=== PATIENT | male | born 1995 | race Caucasian/White ===

== ENCOUNTER 2016-05-26 11:12 | Emergency (ER) | payer SELFPAY ==
--- NOTE | ~2016-05-26 | ER ---
PATIENT'S NAME: JEAN [facility]UL [facility] AGE: 20 Y [address] ROOM: [place] [id number] LOCATION: ED ADMIT DATE: 05/26/2016 ER/Outpatient Report DISCHARGE DATE: 05/26/2016 FAMILY PHYSICIAN: Physician, Unknown ATTENDING PHYSICIAN: Fabiano Keita CHIEF COMPLAINT: Alcohol intoxication. HPI: The patient brought in by ambulance and police for being belligerent. The patient has a history of alcohol abuse requiring treatment. He states that he has been using moonshine and mouthwash as well recently. His significant other did not want to help participate in his care today. He was supposedly unresponsive in public; difficult to arouse, which improved; but he became belligerent and at that time police felt he should be evaluated and asked for an ambulance to bring him in. No other known issues at that time. PAST MEDICAL HISTORY: Obtained as best we could find. SOCIAL HISTORY: Obtained as best we could find. MEDICATIONS: Obtained as best we could find. ALLERGIES: OBTAINED BEST WE COULD FIND. REVIEW OF SYSTEMS: Such as it is was completed and documented on the record and negative except as noted in the HPI. PHYSICAL EXAMINATION: VITAL SIGNS: Blood pressure 157/110, pulse 113, respiratory rate is 18, temperature is 97.2, SpO2 is 98% on room air. GENERAL: Age-appropriate male, agitated, speaking in an abrasive language and being verbally aggressive. No physical aggression. He is intermittently agitated and he is not easily redirectable. He at one point did actually pull out his IV. He did have an IV running and was getting normal saline for hydration. His mental status did appear to improve somewhat during his time in the emergency department. HEENT: Grossly normocephalic. No obvious trauma. The eyes are without nystagmus, but the patient is clearly intoxicated. The speech is slightly PATIENT'S NAME: JEAN PAUL [facility] AGE: 20 Y [address] ROOM: [place] [address] LOCATION: [facility] ADMIT DATE: 05/26/2016 ER/Outpatient Report DISCHARGE DATE: 05/26/2016 FAMILY PHYSICIAN: Physician, Unknown ATTENDING PHYSICIAN: Fabiano Keita slurred. Inspection of the body does not reveal any other abnormalities. The patient would not allow me to examine him any further, but I do not appreciate any obvious trauma. No difficulty with breathing. No obvious pain in his extremities based on his current gait. LABORATORY DATA: The patient did allow labs. Sodium was 147, potassium 3.9, chloride is 110, CO2 is 25, BUN is 10, creatinine 0.9. GFR is greater than 60. LFTs are completely within normal limits. Blood alcohol level is 0.430. Salicylates are below threshold. Tylenol is below threshold. Free T4 is 1.3. TSH is 0.575. Lactate is 3.0. WBC is 5.1, hemoglobin is 16.8, platelets of 302. UDS is notable for cannabinoids being positive. INR is 1.0. IMPRESSION: Alcohol intoxication. EMERGENCY DEPARTMENT COURSE: The patient was evaluated as above. He became extremely adamant to leave. I was able to confirm that he did not have any obvious life-threatening presentations and saw no exact neural deficits. Presentation fits alcohol intoxication. No evidence of elevated anion gap and there is no salicylates or Tylenol in the system. At this time, I believe he is medically stable for discharge. The patient was ultimately discharged. This was a suboptimal encounter as the patient would not acquiesce to a physical exam. My overall suspicion is low; however, I could not complete my evaluation. He was ultimately discharged under his own power. MD ARUN CAMACHO/aashish /[id number] d: 05/27/16 0857 t: 05/29/16 181, OUTPATIENT REPORT
[2016-05-26 12:01] LABS: BASOPHIL # 0.1 K/uL (0.0-0.2); BASOPHIL % 1.4 %; EOSINOPHIL % 0.4 %; HEMATOCRIT 48.6 % (37.0-53.0); HEMOGLOBIN 16.8 g/dL (12.0-17.0); LYMPHOCYTE # 1.8 K/uL (0.8-4.0); LYMPHOCYTE % 34.9 %; MCH 31.6 pg (27.0-34.0); MCHC 34.6 gm/dL (32.0-36.5); MCV 91.4 fl (83.0-98.0); MONOCYTE # 0.3 K/uL (0.0-1.0); MONOCYTE % 5.3 %; MPV 9.2 fl (9.4-12.4); NEUTROPHIL # (ANC) 2.9 K/uL (1.4-9.0); NRBC % 0 /100WBC (0-0.00); PLATELET COUNT 302 K/uL (150-450); RBC 5.32 M/uL (4.00-6.00); RDW-CV 12.4 % (11.9-14.6); WBC 5.1 K/uL (4.0-11.0)
[2016-05-26 12:02] LABS: BARBITURATE NEGATIVE (NEGATIVE); COCAINE NEGATIVE (NEGATIVE); OPIATES NEGATIVE (NEGATIVE)
[2016-05-26 12:05] LABS: AMPHETAMINE NEGATIVE (NEGATIVE)
[2016-05-26 12:09] LABS: PROTIME 10.6 SECONDS (9.6-11.1); PTT 25 SECONDS (25-32)
[2016-05-26 12:28] LABS: ALBUMIN 4.5 gm/dL (3.5-5.0); ALK PHOS 94 IU/L (33-138); ALT 41 IU/L (12-78); AST 36 IU/L (10-40); BLOOD UREA NITROGEN 10 mg/dL (6-24); CALCIUM 8.3 mg/dL (8.5-10.5); CHLORIDE 110 mMol/L (96-110); CO2 25 mMol/L (22-32); CREATININE 0.9 mg/dL (0.6-1.3); ESTIMATED GFR (MDRD EQUATION) > 60; POTASSIUM 3.9 mMol/L (3.7-5.1); TOTAL BILIRUBIN 0.5 mg/dL (0.0-1.5); TOTAL PROTEIN 7.6 g/dL (6.0-8.4)
[2016-05-26 12:29] LABS: ANION GAP 15.9 (10.0-19.0); SODIUM 147 mMol/L (135-145)
== END 2016-05-26 12:40 | disposition disaster alternative care site (69) ==
LOC: GMED 11:12
PROVIDERS: Emergency Medicine
DX: F10.129 Alcohol abuse with intoxication, unspecified (principal)
CPT/HCPCS: G0480